=== PATIENT | male | born 1975 | race Hispanic/Latino ===

== ENCOUNTER 2023-10-22 08:51 | Day surgery (SDC) | payer BC ==
[2023-10-17 13:48] VITALS: BP 119/68; PULSE 74; RESP 19
[2023-10-17 13:49] LABS: BASOPHILS # (AUTO) 0.04 K/uL (0.00-0.20); BASOPHILS % (AUTO) 0.5 % (0.0-5.0); EOSINOPHILS # (AUTO) 0.37 K/uL (0.00-0.70); EOSINOPHILS % (AUTO) 4.9 % (0.0-8.0); HEMATOCRIT 33.5 % (42-54); IMMATURE GRANULOCYTE ABSOLUTE 0.07 K/uL (0-1); LYMPHOCYTES % (AUTO) 12.9 % (21.0-51.0); MEAN CORPUSCULAR HEMOGLOBIN 27.6 pg (27.0-33.0); MEAN CORPUSCULAR HGB CONC 34.3 g/dL (32.0-36.0); MEAN CORPUSCULAR VOLUME 80.3 fL (79-99); MONOCYTES # (AUTO) 0.6 K/uL (0.1-1.0); NEUTROPHILS # (AUTO) 5.5 K/uL (1.8-7.7); NEUTROPHILS % (AUTO) 72.8 % (40.0-77.0); PLATELET COUNT (AUTO) 243 K/uL (130-400); RED BLOOD CELL COUNT(AUTO) 4.17 MIL/uL (4.50-6.20); RED CELL DISTRIBUTION WIDTH 13.5 % (11.0-15.5); WHITE BLOOD COUNT (AUTO) 7.5 K/uL (4.8-10.8)
[2023-10-17 14:04] LABS: CREATININE 5.9 mg/dL (0.5-1.3); POTASSIUM 3.5 mmol/L (3.5-5.1)
[2023-10-17 14:06] LABS: PROTHROMBIN TIME 11.8 SEC (9.6-11.6)
[2023-10-17 14:07] LABS: PARTIAL THROMBOPLASTIN TIME 29.8 SEC (26.3-35.5)
[2023-10-22] VITALS (14 sets, daily range): BP systolic 97–118; BP diastolic 58–72; PULSE 63–70; RESP 12–27
[~2023-10-22] VITALS: Ht 170.2 cm; Wt 88.6 kg
[~2023-10-22 08:51] MED LIST: AEC81 PO; CARV12.511 PO; FOLI1TAB85 PO; FURO20TA4 PO; GLIM4TAB36 PO; INSU100V12 SQ; NIFE-39 PO; PANT40TA54 PO; PRAV40TA3 PO; SEMA0.258 SQ; SITA50TA PO; SODI325T PO
[2023-10-22 10:43] LABS: POTASSIUM 3.7 mmol/L (3.5-5.1)
[2023-10-22] MEDS ORDERED: CEFAZOLIN SODIUM 2 GM VIAL ONE (10:56)
[2023-10-22] MEDS: 0.9% NACL 500ML IV.SOLN 500 ML IV ONE (11:35)
[2023-10-22] MEDS ORDERED: PROPOFOL 10 MG/ML 20ML VIAL IV ONE (11:43)
[2023-10-22] MEDS ORDERED: MIDAZOLAM HCL 1 MG/ML 2ML VIAL ONE (11:43)
[2023-10-22] MEDS ORDERED: FENTANYL CITRATE PF 50 MCG/1 ML 2ML VIAL ONE ×2 (11:44→12:51)
[2023-10-22] MEDS ORDERED: ROCURONIUM BROMIDE 10MG/1ML 5ML VL ONE (11:44)
[2023-10-22] MEDS ORDERED: BUPIVACAINE/PF 0.5% 30ML VIAL ONE (12:19)
[2023-10-22] MEDS ORDERED: EPINEPHRINE PF 1MG (1:1,000) 1 MG/ML AMP ONE (12:19)
[2023-10-22] MEDS: BUPIVACAINE/EPI/PF 0.5% 30ML VIAL IJ ONE (12:31)
[2023-10-22] MEDS ORDERED: NEOSTIGMINE METHYLSULFATE 1MG/ML IV ONE (12:47)
[2023-10-22] MEDS ORDERED: GLYCOPYRROLATE 0.2 MG/ML 5 ML VIAL ONE (12:47)
[2023-10-22] MEDS ORDERED: DOCU-116 PO (12:49)
[2023-10-22] MEDS ORDERED: TRAM50TA4 PO (12:49)
[2023-10-22] MEDS ORDERED: ONDANSETRON 4MG INJ ONE (12:51)
== END 2023-10-22 14:49 | disposition home or self-care (01) ==
LOC: DAH 08:51
PROVIDERS: ATTEND Surgery
DX: E11.22 Type 2 diabetes mellitus with diabetic chronic kidney disease (principal); I12.0 Hypertensive chronic kidney disease with stage 5 chronic kidney disease or end stage renal disease; N18.6 End stage renal disease; I25.10 Atherosclerotic heart disease of native coronary artery without angina pectoris; Z99.2 Dependence on renal dialysis; Z79.01 Long term (current) use of anticoagulants; Z79.899 Other long term (current) drug therapy; Z83.3 Family history of diabetes mellitus; Z79.82 Long term (current) use of aspirin
CPT/HCPCS: 86900 ×2; 80048 ×2; 85025; 85610; 85730; 86850 ×2; 86901 ×2; 36415 ×2; 49324; 82948 ×2; J0665; C1750; A4663; J7040; J3010 ×2; J3490 ×3; J0171; J2250; J2704; J2405; J2710; J0690; A4930; A4215; A4223; A4222; A4221; A4600; G0168